=== PATIENT | male | born 1995 | race Caucasian/White ===

== ENCOUNTER 2019-03-28 18:39 | Emergency (ER) | payer BC ==
[~2019-03-28] VITALS: Ht 175.3 cm; Wt 52.2 kg
--- NOTE | 2019-03-28 19:26 | NUR ---
Dr. Powell at bedside for MSE.
[2019-03-28] MEDS ORDERED: KETOROLAC TROMETHAMINE 30 MG INJ IVP ONE (19:30)
[2019-03-28] MEDS ORDERED: ONDANSETRON 4 MG/2 ML VIAL IV ONE (19:30)
[2019-03-28] MEDS ORDERED: IV NORMAL SALINE 1000 ML BAG IV ONE ×2 (19:30→20:45)
[2019-03-28] MEDS ORDERED: KETOROLAC TROMETHAMINE 30 MG INJ ONE (19:38)
[2019-03-28] MEDS ORDERED: ONDANSETRON 4 MG/2 ML VIAL ONE (19:38)
--- NOTE | 2019-03-28 19:44 | NUR ---
Pt provided urine sample, sent to lab.
[2019-03-28 19:45] LABS: BASOPHILS % (AUTO) 0.1 % (0.0-2.0); HEMATOCRIT 45.4 % (36.7-47.1); HEMOGLOBIN 15.4 g/dL (12.5-16.3); LYMPHOCYTES # (AUTO) 0.2 K/uL (20.0-40.0); LYMPHOCYTES % (AUTO) 1.6 % (20.5-51.5); MEAN CORPUSCULAR HEMOGLOBIN 30.9 uug (23.8-33.4); MEAN CORPUSCULAR HGB CONC 34 g/dL (32.5-36.3); MEAN CORPUSCULAR VOLUME 91.3 fL (73.0-96.2); MONOCYTES # (AUTO) 0.6 K/uL (2.0-10.0); MONOCYTES % (AUTO) 5.1 % (0.0-11.0); NEUTROPHILS % (AUTO) 93.2 % (38.5-71.5); PLATELET COUNT (AUTO) 259 K/uL (152-348); RED BLOOD CELL COUNT(AUTO) 4.97 MIL/uL (4.06-5.63); WHITE BLOOD COUNT (AUTO) 11.8 K/uL (3.6-10.2)
[2019-03-28 19:47] LABS: *BILIRUBIN,URIN NEGATIVE (NEGATIVE); *BLOOD, URINE NEGATIVE (NEGATIVE); *CLARITY,URINE CLEAR (CLEAR); *COLOR,URINE YELLOW (YELLOW); *KETONES,URINE TRACE (NEGATIVE); *UROBILINOGEN,URINE 0.2 E.U./dl (NORMAL); LEUKOCYTE ESTERASE ,URINE NEGATIVE (NEGATIVE); NITRITE, URINE NEGATIVE (NEGATIVE); PH,URINE 8.5 (5.0-8.0); UGLUCOSE NEGATIVE (NEGATIVE)
[2019-03-28 20:00] LABS: MUCUS,URINE MANY /LPF (0-FEW)
[2019-03-28 20:02] LABS: CREATININE 1.1 mg/dL (0.6-1.3); POTASSIUM 3.9 mmol/L (3.5-5.1)
[2019-03-28 20:07] LABS: BILIRUBIN,DIRECT 0.2 mg/dL (0.0-0.2); BILIRUBIN,TOTAL 1.2 mg/dL (0.2-1.0); TOTAL PROTEIN, SERUM 8.5 g/dL (6.4-8.2)
[2019-03-28] MEDS ORDERED: IOHEXOL 300MG/ML 100 ML INFUS..BTL ONE (20:12)
[2019-03-28] MEDS ORDERED: SWABABLE VALVE TRANSFER SET EA MC ONE (20:12)
[2019-03-28] MEDS ORDERED: IV NORMAL SALINE 250 ML IV ONE (20:12)
--- NOTE | 2019-03-28 20:21 | NUR ---
Pt states nausea is gone and pain has subsided.
--- NOTE | 2019-03-28 20:22 | NUR ---
Pt out of ER for CT.
--- NOTE | 2019-03-28 20:40 | NUR ---
Pt back to ER from CT.
--- NOTE | 2019-03-28 22:10 | NUR ---
Patient states "I feel better now." Dr Powell into re eval patient.
--- NOTE | 2019-03-28 22:17 | NUR ---
IV removed. Catheter intact and site benign. Pressure and 4x4 gauze applied to site. No bleeding noted.
[2019-03-28 22:18] VITALS: BP 109/65
--- NOTE | 2019-03-28 22:19 | NUR ---
Patient discharged to home in stable conditon with friend taking patient home. Written and verbal after care instructions given. Patient verbalizes understanding of instructions. Walked out of ER with no distress noted.
== END 2019-03-28 22:20 | disposition home or self-care (01) ==
LOC: ER 18:39
DX: R11.10 Vomiting, unspecified (principal); R19.7 Diarrhea, unspecified; R10.84 Generalized abdominal pain
CPT/HCPCS: 36415; 74177; 80048; 80076; 81000; 81001; 83690; 85025; 96361; 96374; 96375; 99284; J1885; J2405; Q9967; A4663; J7030; J7050